=== PATIENT | female | born 1960 ===

== ENCOUNTER 2022-07-08 08:29 | Day surgery (SDC) | payer OTHER | END 2022-07-08 14:50 | disposition home or self-care (01) | LOC: AMB-ENDOS 08:29 → CIR.AMB 14:00 → AMB-ENDOS 14:50 | PROVIDERS: ATTEND Colon & Rectal Surgery | DX: D12.0 Benign neoplasm of cecum (principal); D12.3 Benign neoplasm of transverse colon; K63.89 Other specified diseases of intestine; K57.32 Diverticulitis of large intestine without perforation or abscess without bleeding; R10.32 Left lower quadrant pain; Z20.822 Contact with and (suspected) exposure to COVID-19 ==